=== PATIENT | female | born 1965 | race Caucasian/White ===

== ENCOUNTER 2016-10-22 14:44 | Inpatient (IN) | payer OTHER ==
[~2016-10-22] VITALS: Ht 160 cm; Wt 80.7 kg
[~2016-10-22 14:44] MED LIST: ADVAIR 250/501 DISK IH; ADVAIR HFA120 INHALA IH; ALBUTEROL SULF8.5 GM IH; ALEVE220 M2 PO; ALEVE220 MG PO; ALPRAZOLAM0.5 MG PO; ALPRAZOLAM1 MG PO; AZITHROMYCIN250 MG; CELEXA10 MG PO; CITALOPRAM HBR20 MG PO; DOXYCYCLINE HY100 MG PO; FLOVENT 11120 INHALA IH; IPRATR-ALBUTEROL3 ML IH; KLONOPIN1 MG PO; LEVOFLOXACIN500 MG PO; LEVOFLOXACIN750 MG PO; LO-DOSE ASPIRIN81 M1 PO; LOW DOSE ASPIRI81 M1 PO; LYRICA100 MG PO; LYRICA75 MG PO; NICODERM CQ1 EAC2 TD; NICOTINE PATCH1 EAC1 TD; OXYCODONE-APAP1 EACH; OXYCODONE-APAP1 EACH PO; PERCOCET 10/1 TABLET PO; PREDNISONE10 MG PO; PREDNISONE20 MG PO; PROVENTIL,2.5 MG/3 M IH; QUETIAPINE FUM400 MG PO; SEROQUEL200 MG PO; SEROQUEL300 MG PO; SEROQUEL400 MG PO; SEROQUEL50 MG PO; TESSALON PERLE100 MG PO; VENTOLIN HFA18 GM IH; VITAMIN D50000 UNI4 PO; XANAX1 MG PO; ZOLOFT100 MG PO
[2016-10-22 15:28] LABS: EOSINOPHIL (%) 0.1 % (0-5); HEMATOCRIT 48.4 % (36.0-46.0); IMMATURE GRANULOCYTE (%) 0.2 % (0.0-0.7); IMMATURE GRANULOCYTE COUNT 0.3 K/uL; LYMPHOCYTE COUNT 0.8 K/uL (1.0-2.8); MCH 31.8 PG (29.0-34.0); MCHC 34.5 G/DL (30.0-36.0); MCV 92.2 FL (83-99); MEAN PLAT.VOLUME 12.6 uM^3 (9.5-12.4); MONOCYTE (%) 5.1 % (3-12); MONOCYTE COUNT 0.8 K/uL (0-0.8); NEUTROPHIL (%) 89.3 % (45-76); NEUTROPHIL COUNT 14.4 K/uL (1.8-6.4); PLATELET COUNT 146 K/uL (156-360); RBC DIS.WIDTH-CV 14.5 % (11.8-14.6); RBC DIS.WIDTH-SD 47.2 % (39-53); RED BLOOD COUNT 5.25 M/uL (3.80-5.20); WHITE BLOOD COUNT 16.1 K/uL (4.1-10.2)
[2016-10-22 15:40] LABS: CHLORIDE 96 mEq/L (99-109); POTASSIUM 4.1 mEq/L (3.7-5.4); SODIUM 134 mEq/L (136-147)
[2016-10-22 15:41] LABS: GLUCOSE 124 mg/dL (70-99)
[2016-10-22 15:43] LABS: ANION GAP 14 MEQ/L (2-14)
[2016-10-22 15:45] LABS: GFR ESTIMATE (CALCULATED) > 59 mL/min/
[2016-10-22 15:46] LABS: UREA NITROGEN (BUN) 9 mg/dL (9-23)
[2016-10-22 15:51] LABS: ADD MIUA? YES; BILIRUBIN NEGATIVE; BLOOD TRACE; COLOR YELLOW ((YELLOW)); GLUCOSE (STRIP) NEGATIVE; KETONES NEGATIVE; LEUKOCYTES NEGATIVE; NITRITE NEGATIVE; PH, URINE 6.5 (5-8); PROTEIN (STRIP) >=300; UROBILINOGEN 0.2 MG/DL (0.2-1.0)
[2016-10-22 16:10] LABS: BACTERIA NONE SEEN; CASTS NONE SEEN /LPF; CRYSTALS NONE SEEN; EPITHELIAL CELLS RARE; MUCUS NONE SEEN; RED BLOOD CELLS RARE /HPF (0-5); UCUL ADDED? NO; WHITE BLOOD CELLS 0-5 /HPF (0-5)
[2016-10-22 16:13] LABS: INFLUENZA A VIRAL ANTIGEN NEGATIVE; INFLUENZA B VIRAL ANTIGEN NEGATIVE
[2016-10-22] MEDS ORDERED: ALBUTEROL2.5 MG/3 M IH (18:09)
[2016-10-22] MEDS ORDERED: CLONAZEPAM1 MG PO (18:09)
[2016-10-22 20:34] VITALS: BP 105/65
[2016-10-22 23:14] VITALS: BP 100/57
[2016-10-23] VITALS (8 sets, daily range): BP systolic 76–119; BP diastolic 38–68
[2016-10-23 07:10] LABS: HEMATOCRIT 42.4 % (36.0-46.0); MCH 32.4 PG (29.0-34.0); RBC DIS.WIDTH-CV 14.6 % (11.8-14.6); RBC DIS.WIDTH-SD 52.8 % (39-53); RED BLOOD COUNT 4.32 M/uL (3.80-5.20)
[2016-10-23 07:15] LABS: MCV 98.1 FL (83-99)
[2016-10-23 07:18] LABS: ANION GAP 9 MEQ/L (2-14); CHLORIDE 109 MEQ/L (99-109); GFR ESTIMATE (CALCULATED) > 59 mL/min/; GLUCOSE 171 mg/dL (70-99); SAMPLE HEMOLYSIS CHECK 2; SAMPLE ICTERIC CHECK 0; SAMPLE LIPEMIA CHECK 0; SODIUM 140 MEQ/L (136-147); UREA NITROGEN (BUN) 13 mg/dL (9-23)
[2016-10-23 07:26] LABS: POTASSIUM 4.8 MEQ/L (3.7-5.4)
[2016-10-23 08:17] LABS: PLATELET COUNT UNABLE TO REPORT K/uL (156-360)
[2016-10-23 08:35] LABS: POTASSIUM 4.3 MEQ/L (3.7-5.4)
[2016-10-24 02:28] VITALS: BP 117/58
[2016-10-24 07:17] LABS: ANION GAP 11 MEQ/L (2-14); CHLORIDE 106 MEQ/L (99-109); GFR ESTIMATE (CALCULATED) > 59 mL/min/; GLUCOSE 268 mg/dL (70-99); POTASSIUM 4.5 MEQ/L (3.7-5.4); SAMPLE HEMOLYSIS CHECK 0; SAMPLE ICTERIC CHECK 0; SAMPLE LIPEMIA CHECK 0; SODIUM 140 MEQ/L (136-147); UREA NITROGEN (BUN) 11 mg/dL (9-23)
[2016-10-24 07:49] LABS: HEMATOCRIT 38.8 % (36.0-46.0); MCH 32.2 PG (29.0-34.0); MCV 97.5 FL (83-99); RBC DIS.WIDTH-CV 14.9 % (11.8-14.6); RBC DIS.WIDTH-SD 53.4 % (39-53); RED BLOOD COUNT 3.98 M/uL (3.80-5.20); WHITE BLOOD COUNT 9.8 K/uL (4.1-10.2)
[2016-10-24 08:05] LABS: MEAN PLAT.VOLUME 13.5 uM^3 (9.5-12.4)
[2016-10-24 08:08] LABS: PLATELET COUNT 107 K/uL (156-360)
[2016-10-24 09:30] VITALS: BP 130/77
[2016-10-24 12:07] VITALS: BP 121/59
[2016-10-24 15:47] VITALS: BP 132/70
[2016-10-24 17:20] LABS: POINT-OF-CARE METER ID UU13113698
[2016-10-24 19:00] VITALS: BP 126/57
[2016-10-25 00:02] VITALS: BP 123/62
[2016-10-25 01:36] VITALS: BP 123/61
[2016-10-25 04:00] VITALS: BP 143/62
[2016-10-25 07:36] LABS: ANION GAP 9 MEQ/L (2-14); CHLORIDE 109 MEQ/L (99-109); GFR ESTIMATE (CALCULATED) > 59 mL/min/; GLUCOSE 217 mg/dL (70-99); POTASSIUM 4.4 MEQ/L (3.7-5.4); SAMPLE HEMOLYSIS CHECK 0; SAMPLE ICTERIC CHECK 0; SAMPLE LIPEMIA CHECK 0; SODIUM 142 MEQ/L (136-147); UREA NITROGEN (BUN) 14 mg/dL (9-23)
[2016-10-25 08:03] LABS: HEMATOCRIT 40.3 % (36.0-46.0); MCV 96.9 FL (83-99); RBC DIS.WIDTH-CV 14.9 % (11.8-14.6); RED BLOOD COUNT 4.16 M/uL (3.80-5.20)
[2016-10-25 08:07] LABS: WHITE BLOOD COUNT 12.9 K/uL (4.1-10.2)
[2016-10-25 08:09] LABS: MEAN PLAT.VOLUME 13.3 uM^3 (9.5-12.4); PLATELET COUNT 116 K/uL (156-360)
[2016-10-25 08:20] LABS: POINT-OF-CARE METER ID UU14174225
[2016-10-25 08:25] LABS: INTERNAL CONTROL VALID? YES
[2016-10-25 08:30] VITALS: BP 157/90
[2016-10-25 15:40] VITALS: BP 156/78
[2016-10-25 23:25] VITALS: BP 136/67
[2016-10-26 08:36] VITALS: BP 142/89
[2016-10-26 11:36] LABS: POINT-OF-CARE METER ID UU14174225
[2016-10-26 15:00] VITALS: BP 142/89
[2016-10-26 18:16] LABS: Estimated Average Glucose 120 mg/dL (70-123); HEMOGLOBIN A1c (GLYCOHEMOGLOB) 5.8 % HGB (Below 5.7)
[2016-10-26 23:35] VITALS: BP 150/72
[2016-10-27 01:18] LABS: POINT-OF-CARE METER ID UU14174225
[2016-10-27 07:53] VITALS: BP 151/70
[2016-10-27 08:38] LABS: POINT-OF-CARE METER ID UU14174225
[2016-10-27] MEDS ORDERED: PREDNISONE10 MG PO (12:08)
[2016-10-27] MEDS ORDERED: SPIRIVA RESPIMAT4 GM IH (12:09)
[2016-10-27] MEDS ORDERED: THEOPHYLLINE400 MG PO (12:09)
[2016-10-27] MEDS ORDERED: CEFDINIR300 MG PO (12:10)
== END 2016-10-27 14:10 | disposition home health service (06) | DRG 190 ==
LOC: EME → EDBD 14:44 → EDOF 19:05 → 4EAST 19:05 → 5SOUTH 10-25 01:18
PROVIDERS: Emergency Medicine; Hospitalist; Internal Medicine; Nurse Practitioner Adult Health
DX: J44.1 Chronic obstructive pulmonary disease with (acute) exacerbation (principal); J18.9 Pneumonia, unspecified organism; J96.21 Acute and chronic respiratory failure with hypoxia; F33.9 Major depressive disorder, recurrent, unspecified; J20.9 Acute bronchitis, unspecified; Z99.81 Dependence on supplemental oxygen; F41.9 Anxiety disorder, unspecified; G89.4 Chronic pain syndrome; F43.10 Post-traumatic stress disorder, unspecified; I25.10 Atherosclerotic heart disease of native coronary artery without angina pectoris; F17.210 Nicotine dependence, cigarettes, uncomplicated; I71.2 Thoracic aortic aneurysm, without rupture; I70.0 Atherosclerosis of aorta; Z91.19 Patient's noncompliance with other medical treatment and regimen; I95.9 Hypotension, unspecified; J98.4 Other disorders of lung; Z82.49 Family history of ischemic heart disease and other diseases of the circulatory system; Z83.3 Family history of diabetes mellitus
CPT/HCPCS: 71010; 71020; 71260; 80048; 81003; 82948; 83036; 83605; 84999; 85025; 85027; 87040; 87070; 87205; 87449; 87502; 94640; 94640 76; 94760; 94799; 99202; 99281; 99285; J0456; J0696; J1644; J1815; J2270; J2405; J2930; J7030; J7040; J7050; J7512

== ENCOUNTER 2016-12-25 10:43 | Inpatient (IN) | payer OTHER ==
[~2016-12-25] VITALS: Ht 162.6 cm; Wt 75.8 kg
[~2016-12-25 10:43] MED LIST changes: +ALBUTEROL2.5 MG/3 M IH; +CEFDINIR300 MG PO; +CLONAZEPAM1 MG PO; +SPIRIVA RESPIMAT4 GM IH; +THEOPHYLLINE400 MG PO
[2016-12-25 12:37] LABS: HEMATOCRIT 50.9 % (36.0-46.0); MCH 31.5 PG (29.0-34.0); MCHC 33.2 G/DL (30.0-36.0); MCV 94.8 FL (83-99); RBC DIS.WIDTH-CV 13.7 % (11.8-14.6); RBC DIS.WIDTH-SD 48.4 % (39-53); RED BLOOD COUNT 5.37 M/uL (3.80-5.20); WHITE BLOOD COUNT 6.5 K/uL (4.1-10.2)
[2016-12-25 12:44] LABS: CHLORIDE 102 mEq/L (99-109); POTASSIUM 4.7 mEq/L (3.7-5.4); SODIUM 140 mEq/L (136-147)
[2016-12-25 12:46] LABS: GLUCOSE 116 mg/dL (70-99)
[2016-12-25 12:47] LABS: ANION GAP 12 MEQ/L (2-14)
[2016-12-25 12:49] LABS: GFR ESTIMATE (CALCULATED) > 59 mL/min/
[2016-12-25 12:50] LABS: UREA NITROGEN (BUN) 8 mg/dL (9-23)
[2016-12-25 13:37] LABS: INFLUENZA A VIRAL ANTIGEN NEGATIVE; INFLUENZA B VIRAL ANTIGEN NEGATIVE
[2016-12-25 14:25] LABS: MEAN PLAT.VOLUME 13.1 uM^3 (9.5-12.4); PLATELET COUNT 120 K/uL (156-360)
[2016-12-25] MEDS ORDERED: PERCOCET 10/1 TABLET PO (14:53)
[2016-12-25] MEDS ORDERED: ALPRAZOLAM1 MG PO (14:55)
[2016-12-25] MEDS ORDERED: SPIRIVA RESPIMAT4 GM IH (14:57)
[2016-12-25 18:20] VITALS: BP 135/80
[2016-12-25 23:31] VITALS: BP 118/59
[2016-12-26 05:56] LABS: HEMATOCRIT 46.5 % (36.0-46.0); MCH 31.7 PG (29.0-34.0); MCHC 32.9 G/DL (30.0-36.0); MCV 96.5 FL (83-99); MEAN PLAT.VOLUME 13.7 uM^3 (9.5-12.4); NRBC (%) 0.3 /100 WBC (0-0); PLATELET COUNT 152 K/uL (156-360); RBC DIS.WIDTH-CV 13.7 % (11.8-14.6); RBC DIS.WIDTH-SD 48.9 % (39-53); RED BLOOD COUNT 4.82 M/uL (3.80-5.20); WHITE BLOOD COUNT 5.8 K/uL (4.1-10.2)
[2016-12-26 06:19] LABS: ANION GAP 7 MEQ/L (2-14); CHLORIDE 106 MEQ/L (99-109); GFR ESTIMATE (CALCULATED) > 59 mL/min/; GLUCOSE 173 mg/dL (70-99); POTASSIUM 4.1 MEQ/L (3.7-5.4); SAMPLE HEMOLYSIS CHECK 0; SAMPLE ICTERIC CHECK 0; SAMPLE LIPEMIA CHECK 0; SODIUM 138 MEQ/L (136-147); UREA NITROGEN (BUN) 13 mg/dL (9-23)
[2016-12-26 07:53] VITALS: BP 122/63
[2016-12-26 16:21] VITALS: BP 134/72
== END 2016-12-26 17:10 | disposition left against medical advice (07) | DRG 192 ==
LOC: EME → EDBD 10:43 → EME 10:43 → 3EAST 15:07 → EDOF 15:07 → 3EAST 17:10
PROVIDERS: Emergency Medicine; Hospitalist
DX: J44.1 Chronic obstructive pulmonary disease with (acute) exacerbation (principal); J40 Bronchitis, not specified as acute or chronic; F32.9 Major depressive disorder, single episode, unspecified; F17.210 Nicotine dependence, cigarettes, uncomplicated; G89.4 Chronic pain syndrome; F41.9 Anxiety disorder, unspecified; Z90.49 Acquired absence of other specified parts of digestive tract
CPT/HCPCS: 71020; 80048; 83605; 85027; 85379; 87040; 87070; 87205; 87502; 94640; 94640 76; 94760; 94799; 99202; 99281; 99285; J1644; J2930; J7030

== ENCOUNTER 2017-05-09 18:54 | Emergency (ER) | payer OTHER ==
[~2017-05-09] VITALS: Ht 162.6 cm; Wt 67.9 kg
[2017-05-09 20:33] LABS: MCH 32.6 PG (29.0-34.0); MCHC 34.3 G/DL (30.0-36.0); MCV 94.8 FL (83-99); RBC DIS.WIDTH-CV 13.7 % (11.8-14.6); RED BLOOD COUNT 4.85 M/uL (3.80-5.20); WHITE BLOOD COUNT 7.2 K/uL (4.1-10.2)
[2017-05-09 20:50] LABS: CHLORIDE 105 mEq/L (99-109); POTASSIUM 3.7 mEq/L (3.7-5.4); SODIUM 139 mEq/L (136-147)
[2017-05-09 20:51] LABS: GLUCOSE 94 mg/dL (70-99)
[2017-05-09 20:53] LABS: ANION GAP 11 MEQ/L (2-14)
[2017-05-09 20:55] LABS: GFR ESTIMATE (CALCULATED) > 59 mL/min/; SERUM ETHYL ALCOHOL < 10 mg/dL
[2017-05-09 20:56] LABS: UREA NITROGEN (BUN) 11 mg/dL (9-23)
[2017-05-09 21:17] LABS: MEAN PLAT.VOLUME 12.9 uM^3 (9.5-12.4); PLAT.SUFFICIENCY DECREASED; PLATELET COUNT 136 K/uL (156-360)
[2017-05-09 21:57] LABS: AMPHETAMINE NEGATIVE (500 ng/mL); BARBITURATES NEGATIVE (200 ng/mL); BENZODIAZEPINES NEGATIVE (150 ng/mL); COCAINE NEGATIVE (150 ng/mL); INTERNAL CONTROLS VALID? YES; METHADONE NEGATIVE (200 ng/mL); METHAMPHETAMINE NEGATIVE (500 ng/mL); OPIATES (MORPHINE) PRESUMPTIVE POSITIVE (100 ng/mL); OXYCODONE PRESUMPTIVE POSITIVE (100 ng/mL); PHENCYCLIDINE NEGATIVE (25 ng/mL); PROPOXYPHENE NEGATIVE (300 ng/mL); THC CANNABINOIDS NEGATIVE (50 ng/mL); TRICYCLIC ANTIDEPRESSANTS PRESUMPTIVE POSITIVE (300 ng/mL)
[2017-05-09 21:58] LABS: ADD MEDTOX COMMENT Y
[2017-05-10 02:19] VITALS: BP 128/76
== END 2017-05-10 02:20 ==
LOC: EME 18:54
DX: F32.9 Major depressive disorder, single episode, unspecified (principal); R45.851 Suicidal ideations; J44.9 Chronic obstructive pulmonary disease, unspecified; Z79.82 Long term (current) use of aspirin; F17.200 Nicotine dependence, unspecified, uncomplicated
CPT/HCPCS: 80048; 84999; 85027; 90837; 99281; 99285; G0480

== ENCOUNTER 2017-06-09 10:04 | Inpatient (IN) | payer OTHER ==
[~2017-06-09] VITALS: Ht 162.6 cm; Wt 72.3 kg
[2017-06-09 11:02] LABS: HEMATOCRIT 48.5 % (36.0-46.0); MCH 32.5 PG (29.0-34.0); MCV 95.5 FL (83-99); MEAN PLAT.VOLUME 12.6 uM^3 (9.5-12.4); PLATELET COUNT 138 K/uL (156-360); RBC DIS.WIDTH-CV 14.3 % (11.8-14.6); RED BLOOD COUNT 5.08 M/uL (3.80-5.20); WHITE BLOOD COUNT 6.9 K/uL (4.1-10.2)
[2017-06-09 11:05] LABS: CHLORIDE 102 mEq/L (99-109); POTASSIUM 3.8 mEq/L (3.7-5.4); SODIUM 140 mEq/L (136-147)
[2017-06-09 11:05] LABS: ADD MIUA? YES; BILIRUBIN NEGATIVE; BLOOD NEGATIVE; COLOR YELLOW ((YELLOW)); GLUCOSE (STRIP) NEGATIVE; KETONES NEGATIVE; LEUKOCYTES NEGATIVE; NITRITE NEGATIVE; PROTEIN (STRIP) 100; SPECIFIC GRAVITY 1.009 (1.000-1.030); UROBILINOGEN 0.2 MG/DL (0.2-1.0)
[2017-06-09] MEDS ORDERED: SEROQUEL XR400 MG PO (11:05)
[2017-06-09 11:07] LABS: GLUCOSE 116 mg/dL (70-99)
[2017-06-09 11:09] LABS: ANION GAP 12 MEQ/L (2-14); TOTAL BILIRUBIN 0.3 mg/dL (0.0-1.0)
[2017-06-09 11:10] LABS: SERUM ETHYL ALCOHOL < 10 mg/dL
[2017-06-09 11:11] LABS: ALKALINE PHOSPHATASE 95 IU/L (3-129); GFR ESTIMATE (CALCULATED) > 59 mL/min/
[2017-06-09 11:12] LABS: UREA NITROGEN (BUN) 14 mg/dL (9-23)
[2017-06-09 11:13] LABS: BACTERIA NONE SEEN /HPF; EPITHELIAL CELLS 1+ /HPF; MUCUS NONE SEEN /LPF; RED BLOOD CELLS 0-5 /HPF (0-5); WHITE BLOOD CELLS 0-5 /HPF (0-5)
[2017-06-09 11:18] LABS: ADD MEDTOX COMMENT Y; AMPHETAMINE NEGATIVE (500 ng/mL); BARBITURATES NEGATIVE (200 ng/mL); BENZODIAZEPINES NEGATIVE (150 ng/mL); COCAINE NEGATIVE (150 ng/mL); INTERNAL CONTROLS VALID? YES; METHADONE NEGATIVE (200 ng/mL); METHAMPHETAMINE NEGATIVE (500 ng/mL); OPIATES (MORPHINE) PRESUMPTIVE POSITIVE (100 ng/mL); OXYCODONE NEGATIVE (100 ng/mL); PHENCYCLIDINE NEGATIVE (25 ng/mL); PROPOXYPHENE NEGATIVE (300 ng/mL); THC CANNABINOIDS NEGATIVE (50 ng/mL); TRICYCLIC ANTIDEPRESSANTS PRESUMPTIVE POSITIVE (300 ng/mL)
[2017-06-09] MEDS ORDERED: NICODERM CQ1 EAC2 TD (12:46)
[2017-06-09] MEDS ORDERED: CLONAZEPAM1 MG PO (12:46)
[2017-06-09] MEDS ORDERED: ZOLPIDEM TARTRA10 MG PO (12:46)
[2017-06-09 14:19] VITALS: BP 131/67
[2017-06-09 14:24] VITALS: BP 113/61
[2017-06-10 07:19] VITALS: BP 126/65
[2017-06-10 15:28] VITALS: BP 139/67
[2017-06-11 07:37] VITALS: BP 116/66
[2017-06-11 15:32] VITALS: BP 118/66
[2017-06-12 07:43] VITALS: BP 122/76
[2017-06-12 16:03] VITALS: BP 129/81
[2017-06-13 07:45] VITALS: BP 129/67
[2017-06-13] MEDS ORDERED: CELEXA40 MG PO (08:52)
[2017-06-13] MEDS ORDERED: CLONAZEPAM1 MG PO (08:53)
== END 2017-06-13 10:25 | disposition home or self-care (01) | DRG 885 ==
LOC: EME 10:04 → EDOF 12:26 → 1WEST 12:26 → EDOF 12:43 → ENRESERV 13:29 → 1WEST 14:15
PROVIDERS: Emergency Medicine
DX: F32.2 Major depressive disorder, single episode, severe without psychotic features (principal); R45.851 Suicidal ideations; F41.9 Anxiety disorder, unspecified; G89.29 Other chronic pain; M79.606 Pain in leg, unspecified; J44.9 Chronic obstructive pulmonary disease, unspecified; M79.7 Fibromyalgia; Z81.8 Family history of other mental and behavioral disorders; Z79.899 Other long term (current) drug therapy; F17.200 Nicotine dependence, unspecified, uncomplicated
CPT/HCPCS: 80053; 81003; 84999; 85027; 90839; 94640; 94640 76; 99281; 99285; G0480

== ENCOUNTER 2017-06-28 14:29 | Emergency (ER) | payer OTHER ==
[~2017-06-28] VITALS: Ht 162.6 cm; Wt 72.2 kg
[~2017-06-28 14:29] MED LIST changes: +CELEXA40 MG PO; +SEROQUEL XR400 MG PO; +ZOLPIDEM TARTRA10 MG PO
[2017-06-28] MEDS ORDERED: NAPROSYN500 MG PO (16:29)
[2017-06-28 16:42] VITALS: BP 107/84
== END 2017-06-28 16:44 | disposition home or self-care (01) ==
LOC: EME 14:29
DX: S06.0X0A Concussion without loss of consciousness, initial encounter (principal); S00.03XA Contusion of scalp, initial encounter; W22.09XA Striking against other stationary object, initial encounter; Y92.003 Bedroom of unspecified non-institutional (private) residence as the place of occurrence of the external cause; Z87.820 Personal history of traumatic brain injury; G89.29 Other chronic pain; Z79.891 Long term (current) use of opiate analgesic; Z79.82 Long term (current) use of aspirin; J44.9 Chronic obstructive pulmonary disease, unspecified; F17.200 Nicotine dependence, unspecified, uncomplicated; Z71.6 Tobacco abuse counseling
CPT/HCPCS: 70450; 99281; 99284; J1885

== ENCOUNTER 2018-05-30 15:35 | Inpatient (IN) | payer OTHER ==
[~2018-05-30] VITALS: Ht 160 cm; Wt 64.8 kg
[~2018-05-30 15:35] MED LIST changes: +LYRICA200 MG PO; +NAPROSYN500 MG PO
[2018-05-30 17:20] LABS: APPEARANCE CLEAR ((CLEAR)); BILIRUBIN NEGATIVE; BLOOD MODERATE; COLOR AMBER ((YELLOW)); GLUCOSE (STRIP) NEGATIVE; KETONES NEGATIVE; LEUKOCYTES NEGATIVE; NITRITE NEGATIVE; PROTEIN (STRIP) 30; SPECIFIC GRAVITY 1.006 (1.000-1.030)
[2018-05-30 17:29] LABS: BACTERIA RARE /HPF; CALCIUM OXALATE CRYSTALS 2+ /HPF; EPITHELIAL CELLS 1+ /HPF; HYALINE CASTS 0-5 /LPF; MUCUS NONE SEEN /LPF; RED BLOOD CELLS 0-5 /HPF (0-5); UCUL ADDED? NO; WHITE BLOOD CELLS 0-5 /HPF (0-5)
[2018-05-30 18:16] LABS: ALBUMIN 2.5 g/dL (3.2-4.8); CHLORIDE 105 mEq/L (99-109); HEMATOCRIT 35.7 % (36.0-46.0); HEMOGLOBIN 13.1 G/DL (11.9-15.5); MCHC 36.7 G/DL (30.0-36.0); MCV 84.6 FL (83-99); RBC DIS.WIDTH-CV 15.1 % (11.8-14.6); RBC DIS.WIDTH-SD 45.5 % (39-53); RED BLOOD COUNT 4.22 M/uL (3.80-5.20); SODIUM 139 mEq/L (136-147); WHITE BLOOD COUNT 5.8 K/uL (4.1-10.2)
[2018-05-30 18:19] LABS: GLUCOSE 89 mg/dL (70-99); TOTAL PROTEIN 6.3 g/dL (6.4-8.3)
[2018-05-30 18:22] LABS: ALKALINE PHOSPHATASE 318 IU/L (3-129)
[2018-05-30 18:23] LABS: CREATININE 0.5 mg/dL (0.6-1.3); GFR ESTIMATE (CALCULATED) > 59 mL/min/
[2018-05-30 18:24] LABS: AST (GOT) 879 IU/L (2-34); DIRECT BILIRUBIN 4.8 mg/dL (0.0-0.3); UREA NITROGEN (BUN) 6 mg/dL (9-23)
[2018-05-30 18:29] LABS: ALT (GPT) 1076 IU/L (3-49)
[2018-05-30 19:29] LABS: ANISOCYTOSIS 3+; ATYPICAL LYMPHOCYTE 3.5 %; BAND NEUTROPHILS 4.3 % (0-8.0); EOSINOPHIL ABS CT 0.1; EOSINOPHILS 0.9 % (0-5.0); HEMATOLOGY COMMENT 1 SN; LYMPHOCYTES 31.3 % (15.0-45.0); MACROCYTES 3+; MONOCYTES 12.2 % (0-9.0); PLAT.SUFFICIENCY DECREASED; PLATELET COUNT 126 K/uL (156-360); POIKILOCYTOSIS 2+; SEG.NEUTROPHILS 47.8 % (46.0-76.0); SMUDGE CELLS 32.2
[2018-05-30] MEDS ORDERED: KLONOPIN0.5 M1 PO (22:29)
[2018-05-30] MEDS ORDERED: NAPROSYN250 MG PO (22:30)
[2018-05-30] MEDS ORDERED: ZOLOFT25 MG PO (22:34)
[2018-05-30 23:02] LABS: INTER. NORMALIZED RATIO 1.3
[2018-05-30 23:41] LABS: SERUM ETHYL ALCOHOL < 10 mg/dL
[2018-05-30 23:44] LABS: ACETAMINOPHEN (TYLENOL) < 10 mcg/mL (10-30); SALICYLATE < 5.0 MG/DL (15-30)
[2018-05-31 01:44] VITALS: BP 103/63
[2018-05-31 02:00] LABS: IRON 77 MCG/DL (35-150); TRANSFERRIN SATUR. 35 % (20-55)
[2018-05-31 02:31] LABS: AMPHETAMINE NEGATIVE (500 ng/mL); BARBITURATES NEGATIVE (200 ng/mL); BENZODIAZEPINES PRESUMPTIVE POSITIVE (150 ng/mL); BUPRENORPHINE PRESUMPTIVE POSITIVE (10 ng/mL); COCAINE NEGATIVE (150 ng/mL); METHADONE NEGATIVE (200 ng/mL); METHAMPHETAMINE NEGATIVE (500 ng/mL); OPIATES (MORPHINE) NEGATIVE (100 ng/mL); OXYCODONE PRESUMPTIVE POSITIVE (100 ng/mL); PHENCYCLIDINE NEGATIVE (25 ng/mL); PROPOXYPHENE NEGATIVE (300 ng/mL); THC CANNABINOIDS NEGATIVE (50 ng/mL); TRICYCLIC ANTIDEPRESSANTS PRESUMPTIVE POSITIVE (300 ng/mL)
[2018-05-31 02:59] LABS: BENZODIAZEPINES, URINE SCREEN POSITIVE (200 ng/mL)
[2018-05-31 04:30] VITALS: BP 110/73
[2018-05-31 06:27] LABS: INTER. NORMALIZED RATIO 1.3
[2018-05-31 06:50] LABS: HEMOGLOBIN 12.3 G/DL (11.9-15.5); MCH 30.2 PG (29.0-34.0); MCHC 35.1 G/DL (30.0-36.0); PLATELET COUNT 123 K/uL (156-360); RBC DIS.WIDTH-CV 15.5 % (11.8-14.6); RED BLOOD COUNT 4.07 M/uL (3.80-5.20); WHITE BLOOD COUNT 4.7 K/uL (4.1-10.2)
[2018-05-31 06:59] LABS: ABS NEUTROPHIL COUNT 2.7; EOSINOPHIL ABS CT 0.1; EOSINOPHILS 2.6 % (0-5.0); LYMPHOCYTES 27.2 % (15.0-45.0); MONOCYTES 6.1 % (0-9.0); SEG.NEUTROPHILS 57.1 % (46.0-76.0); SMUDGE CELLS 16.7
[2018-05-31 08:11] VITALS: BP 11/68; BP 111/68
[2018-05-31 08:54] LABS: ALBUMIN 2.4 G/DL (3.2-4.8); ALKALINE PHOSPHATASE 290 IU/L (3-129); ALT (GPT) 710 IU/L (3-49); AST (GOT) 599 IU/L (2-34); CHLORIDE 109 MEQ/L (99-109); CREATININE 0.4 MG/DL (0.6-1.3); GFR ESTIMATE (CALCULATED) > 59 mL/min/; GLUCOSE 84 mg/dL (70-99); POTASSIUM 3.8 MEQ/L (3.7-5.4); SODIUM 143 MEQ/L (136-147); TOTAL BILIRUBIN 6.9 MG/DL (0.0-1.0); TOTAL PROTEIN 5.6 G/DL (6.4-8.3); UREA NITROGEN (BUN) 6 mg/dL (9-23)
[2018-05-31 09:25] LABS: THYROTROPIN (TSH) 0.27 MIU/L (0.4-5.5)
[2018-05-31 09:31] LABS: FERRITIN 897 NG/ML (10-291)
[2018-05-31 11:07] LABS: HEPATITIS B SURFACE ANTIGEN Nonreactive
[2018-05-31 11:09] LABS: ANTI-HEPATITIS B CORE (IGM) Nonreactive
[2018-05-31 11:14] LABS: ANTI-HEPATITIS A VIRUS (IGM) REACTIVE; HEPATITIS C ANTIBODY REACTIVE
[2018-05-31 11:50] VITALS: BP 113/69
[2018-05-31 16:33] VITALS: BP 135/78
[2018-05-31 20:37] VITALS: BP 123/66
[2018-06-01 00:29] VITALS: BP 104/65
[2018-06-01 03:37] VITALS: BP 100/63
[2018-06-01 06:52] LABS: INTER. NORMALIZED RATIO 1.2
[2018-06-01 07:09] LABS: HEMATOCRIT 34.2 % (36.0-46.0); HEMOGLOBIN 11.8 G/DL (11.9-15.5); MCH 29.7 PG (29.0-34.0); MCHC 34.5 G/DL (30.0-36.0); MCV 86.1 FL (83-99); PLATELET COUNT 123 K/uL (156-360); RBC DIS.WIDTH-CV 15.9 % (11.8-14.6); RED BLOOD COUNT 3.97 M/uL (3.80-5.20); WHITE BLOOD COUNT 4.4 K/uL (4.1-10.2)
[2018-06-01 07:13] LABS: ALBUMIN 2.3 G/DL (3.2-4.8); ALKALINE PHOSPHATASE 354 IU/L (3-129); AST (GOT) 354 IU/L (2-34); CHLORIDE 108 MEQ/L (99-109); CREATININE 0.5 MG/DL (0.6-1.3); GFR ESTIMATE (CALCULATED) > 59 mL/min/; POTASSIUM 3.7 MEQ/L (3.7-5.4); SODIUM 141 MEQ/L (136-147); TOTAL BILIRUBIN 6.1 MG/DL (0.0-1.0); TOTAL PROTEIN 5.2 G/DL (6.4-8.3); UREA NITROGEN (BUN) 6 mg/dL (9-23)
[2018-06-01 07:18] LABS: GLUCOSE 174 mg/dL (70-99)
[2018-06-01 07:22] VITALS: BP 126/74
[2018-06-01 07:54] LABS: ALT (GPT) 560 IU/L (3-49)
[2018-06-01 15:16] VITALS: BP 133/77
[2018-06-02 00:05] VITALS: BP 132/79
[2018-06-02 05:39] LABS: HEMATOCRIT 33.8 % (36.0-46.0); HEMOGLOBIN 11.8 G/DL (11.9-15.5); MCH 29.6 PG (29.0-34.0); MCHC 34.9 G/DL (30.0-36.0); MCV 84.7 FL (83-99); PLATELET COUNT 127 K/uL (156-360); RBC DIS.WIDTH-CV 15.9 % (11.8-14.6); RBC DIS.WIDTH-SD 47.6 % (39-53); RED BLOOD COUNT 3.99 M/uL (3.80-5.20)
[2018-06-02 05:48] LABS: ALBUMIN 2.2 G/DL (3.2-4.8); ALKALINE PHOSPHATASE 332 IU/L (3-129); ALT (GPT) 473 IU/L (3-49); AST (GOT) 217 IU/L (2-34); CHLORIDE 109 MEQ/L (99-109); CREATININE 0.5 MG/DL (0.6-1.3); GFR ESTIMATE (CALCULATED) > 59 mL/min/; GLUCOSE 131 mg/dL (70-99); POTASSIUM 3.2 MEQ/L (3.7-5.4); SODIUM 141 MEQ/L (136-147); TOTAL PROTEIN 5.4 G/DL (6.4-8.3); UREA NITROGEN (BUN) 4 mg/dL (9-23)
[2018-06-02 05:50] LABS: TOTAL BILIRUBIN 4.2 MG/DL (0.0-1.0)
[2018-06-02 07:15] VITALS: BP 144/71
[2018-06-02 08:30] VITALS: BP 144/71
[2018-06-02] MEDS ORDERED: KRISTALOSE10 GM PO (10:59)
== END 2018-06-02 12:01 | disposition home or self-care (01) | DRG 441 ==
LOC: EME 15:35 → 5SOUTH 23:53 → EDOF 23:53 → 5SOUTH 05-31 01:02
PROVIDERS: Emergency Medicine; Internal Medicine
DX: K72.00 Acute and subacute hepatic failure without coma (principal); G93.40 Encephalopathy, unspecified; B15.9 Hepatitis A without hepatic coma; D68.9 Coagulation defect, unspecified; F11.20 Opioid dependence, uncomplicated; R44.3 Hallucinations, unspecified; G89.4 Chronic pain syndrome; F17.210 Nicotine dependence, cigarettes, uncomplicated; B18.2 Chronic viral hepatitis C; D69.6 Thrombocytopenia, unspecified; E11.9 Type 2 diabetes mellitus without complications; I50.9 Heart failure, unspecified; E88.09 Other disorders of plasma-protein metabolism, not elsewhere classified; F41.9 Anxiety disorder, unspecified; G47.00 Insomnia, unspecified; J44.9 Chronic obstructive pulmonary disease, unspecified; M79.7 Fibromyalgia; K76.0 Fatty (change of) liver, not elsewhere classified; K59.00 Constipation, unspecified; I95.9 Hypotension, unspecified; F31.9 Bipolar disorder, unspecified; Z90.49 Acquired absence of other specified parts of digestive tract; Z79.51 Long term (current) use of inhaled steroids; Z79.82 Long term (current) use of aspirin; Z82.49 Family history of ischemic heart disease and other diseases of the circulatory system; Z83.3 Family history of diabetes mellitus
CPT/HCPCS: 71046; 74177; 80048; 80053; 80074; 80076; 81003; 82140; 82728; 83540; 84443; 84466; 84999; 85025; 85027; 85610; 94799; 99281; 99285; G0480; J1644; J1885; J2270; J3010; J7030; S0028